=== PATIENT | male | born 1990 | race Caucasian/White ===

== ENCOUNTER 2020-12-05 17:33 | Inpatient (IN) | payer OTHER, BC ==
[~2020-12-05] VITALS: Ht 180.3 cm; Wt 64.2 kg
[~2020-12-05 17:33] MED LIST: CEPH500 PO; CODACE30 PO; DIPATR PO; HYDACE5325 PO; OXYACE5T PO; PROM25 PO; RXCODACET PO
[2020-12-05 17:52] LABS: BASOPHILS ABSOLUTE AUTO 0.05 K/mm3 (0.00-0.23); BASOPHILS PERCENT AUTO 1 % (0-2); EOSINOPHILS ABSOLUTE AUTO 0.12 K/mm3 (0.00-0.68); EOSINOPHILS PERCENT AUTO 1 % (0-6); Hematocrit 40.3 % (37.0-53.0); Hemoglobin 15.1 g/dL (13.5-17.5); IMMATURE GRAN ABSOLUTE AUTO 0.03 K/mm3 (0.00-0.10); IMMATURE GRAN PERCENT AUTO 0 % (0-1); LYMPHOCYTES ABSOLUTE AUTO 3.02 K/mm3 (0.84-5.20); LYMPHOCYTES PERCENT AUTO 36 % (21-46); MONOCYTES ABSOLUTE AUTO 0.93 K/mm3 (0.16-1.47); MONOCYTES PERCENT AUTO 11 % (4-13); Mean Corpuscular HGB 34.6 pg (26.0-34.0); Mean Corpuscular HGB Conc 37.5 g/dL (31.5-36.5); Mean Corpuscular Volume 92 fL (80-100); Mean Platelet Volume 10.7 fL (9.1-12.4); NEUTROPHILS ABSOLUTE AUTO 4.18 K/mm3 (1.96-9.15); NEUTROPHILS PERCENT AUTO 50 % (41-73); Platelet Count 189 K/mm3 (150-400); RDW Coefficient Variation 11.4 % (11.7-14.2); RDW Standard Deviation 38.5 fL (35.1-46.3); Red Blood Cell Count 4.36 M/mm3 (4.30-5.90); White Blood Cell Count 8.33 K/mm3 (4.00-11.30)
[2020-12-05 18:06] LABS: International Normalized Ratio 1.02
[2020-12-05 18:11] LABS: Alanine Aminotransfer (ALT/SGP 22 U/L (12-78); Albumin, Blood 4.2 g/dL (3.4-5.0); Albumin/Globulin Ratio 1.1 (0.8-1.8); Alk Phos 50 U/L (50-136); Anion Gap 12 mmol/L (6-16); Aspartate Aminotrans (AST/SGOT 19 U/L (12-37); Bilirubin, Total 0.7 mg/dL (0.1-1.0); Blood Urea Nitrogen 14 mg/dL (8-24); Bun/Creatinine Ratio 16.6 (12.0-20.0); CO2, Blood 21 mmol/L (21-32); Calcium, Blood 8.6 mg/dL (8.5-10.1); Chloride, Blood 109 mmol/L (98-108); Creatinine, Blood 0.84 mg/dL (0.60-1.20); Ethanol (Alcohol), Blood, Med 203 mg/dL; Globulin, Blood 3.7 g/dL (2.2-4.0); Glomerular Filtration Rate >60 (60-); Glucose, Blood 103 mg/dL (70-99); Potassium, Blood 3.7 mmol/L (3.5-5.5); Sodium, Blood 142 mmol/L (136-145); Total Protein, Blood 7.9 g/dL (6.4-8.2)
[2020-12-05 18:48] LABS: Source, Urine Clean Catch
[2020-12-05 18:51] LABS: Appearance, Urine Clear (Clear); Bilirubin, Urine Neg (Neg); Blood, Urine Neg (Neg); Color, Urine Yellow (P-Yellow); Glucose Qualitative, Urine Neg (Neg); Ketones, Urine Neg (Neg); Leukocyte Esterase, Urine Neg (Neg); Nitrite, Urine Neg (Neg); Protein, Urine Neg (Neg); Specific Gravity, Urine 1.005 (1.003-1.022); Urobilinogen, Urine NORM (Normal)
[2020-12-05 22:19] LABS: SARS-Cov-2 (COVID-19) PCR, MMC POSITIVE (NEGATIVE)
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
[2020-12-05 23:53] LABS: U Amphetamine Screen Not Detected; U Barbituate Screen Not Detected; U Benzodiazapine Screen Not Detected; U Buprenorphine Screen Not Detected; U Cannabinoids Screen DETECTED; U Cocaine Screen Not Detected; U Methadone Screen Not Detected; U Methamphetamine Screen Not Detected; U Opiates Screen DETECTED; U Oxycodone Screen Not Detected; U Phencyclidine Screen Not Detected; U Propoxyphene Screen Not Detected
[2020-12-06 04:51] LABS: BASOPHILS ABSOLUTE AUTO 0.02 K/mm3 (0.00-0.23); BASOPHILS PERCENT AUTO 0 % (0-2); EOSINOPHILS PERCENT AUTO 0 % (0-6); Hematocrit 39.9 % (37.0-53.0); Hemoglobin 14.7 g/dL (13.5-17.5); IMMATURE GRAN ABSOLUTE AUTO 0.04 K/mm3 (0.00-0.10); IMMATURE GRAN PERCENT AUTO 0 % (0-1); LYMPHOCYTES ABSOLUTE AUTO 1.05 K/mm3 (0.84-5.20); LYMPHOCYTES PERCENT AUTO 9 % (21-46); MONOCYTES ABSOLUTE AUTO 1.25 K/mm3 (0.16-1.47); MONOCYTES PERCENT AUTO 10 % (4-13); Mean Corpuscular HGB 34.3 pg (26.0-34.0); Mean Corpuscular HGB Conc 36.8 g/dL (31.5-36.5); Mean Corpuscular Volume 93 fL (80-100); Mean Platelet Volume 10.9 fL (9.1-12.4); NEUTROPHILS ABSOLUTE AUTO 9.97 K/mm3 (1.96-9.15); NEUTROPHILS PERCENT AUTO 81 % (41-73); Platelet Count 154 K/mm3 (150-400); RDW Coefficient Variation 11.7 % (11.7-14.2); RDW Standard Deviation 39.2 fL (35.1-46.3); Red Blood Cell Count 4.28 M/mm3 (4.30-5.90); White Blood Cell Count 12.33 K/mm3 (4.00-11.30)
[2020-12-06 05:08] LABS: Anion Gap 7 mmol/L (6-16); Blood Urea Nitrogen 13 mg/dL (8-24); Bun/Creatinine Ratio 15.8 (12.0-20.0); CO2, Blood 24 mmol/L (21-32); Calcium, Blood 8.4 mg/dL (8.5-10.1); Chloride, Blood 107 mmol/L (98-108); Creatinine, Blood 0.82 mg/dL (0.60-1.20); Glomerular Filtration Rate >60 (60-); Glucose, Blood 103 mg/dL (70-99); Potassium, Blood 3.9 mmol/L (3.5-5.5); Sodium, Blood 138 mmol/L (136-145)
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
--- NOTE | 2020-12-06 19:45 | NUR ---
PT BP ELEVATED POST OP. PT DENIES CP/PRESSURE. REP PAIN 11/12. PT REP N/T TO LEFT FINGERS, REP THROBBING PAIN IN LUE. SPLINT CDI, FINGERS WARM, CAP REFILL BRISK, PT MEDICATED FOR PAIN, WILL MONITOR BP AND TX PER ORDERS.
--- NOTE | 2020-12-07 06:38 | NUR ---
PT S/P ORIF TO LUE. POD 1. LUE IN SPLINT/SLING. GOOD CSM'S. ABLE TO WIGGLE FINGERS. NWB TO LUE. WAS HYPERTENSIVE AT BEG OF SHIFT D/T PX. PAIN MANAGED WELL WITH NORCO. TOLERATING CLEAR LIQUIDS. SALINE LOCKED.
[2020-12-07] MEDS ORDERED: Norco 5-325 Ta1 EACH PO (15:55)
[2020-12-07] MEDS ORDERED: AMOX-CLAV200 MG/51 PO (15:57)
--- NOTE | 2020-12-07 17:18 | NUR ---
SUMMARY DISCHARGE CANCELLED FOR TODAY DUE TO PAIN MANAGEMENT. PT REQUIRING IV DILAUDID FOR BREAKTHROUGH PAIN. NONWB TO BUE. MAY HAVE LIGHT ROM TO RUE, NO NEED FOR SLING. MAY USE SPOON, LIFT CUP. PT CHANGED TO FULL LIQUID DIET DUE TO DIFFICULTY CHEWING R/T JAW FX. TOLERATING FLUIDS. WORKED W/THERAPY AND SAT UP IN CHAIR THIS AM. CALL LIGHT IN REACH.
--- NOTE | 2020-12-07 18:21 | NUR ---
BP PT HYPERTENSIVE TODAY. SPOKE TO DR BERRY. ORDERS OBTAINED TO GIVE LABETOLOL FOR DIASTOLIC GREATER THAN 100. ORDERED TELE PER PROTOCOL. MEDICATED PER ORDERS FOR PAIN. CALL KASSANDRA IN REACH.
--- NOTE | 2020-12-07 19:05 | NUR ---
report given to oncoming shift.
--- NOTE | 2020-12-08 06:49 | NUR ---
SHIFT SUMMARY POD2 L RADIAL/ULNAR ORIF, R ELBOW/SCAPULA/JAW FX NON SURGICAL, PAIN MANAGED PER EMAR WITH LAST HALF OF SHIFT CONTROLLED BY ORAL PAIN MEDS, LABETALOL GIVEN FOR HIGH DIASTOLIC BP c GOOD SHORT TERM IMPROVEMENT AT SPOT CHECK. NO ACUTE EVETNS THIS SHIFT, CALL LIGHT IN REACH, WILL CTM AND REPORT TO DAY RN.
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
--- NOTE | 2020-12-12 14:20 | NUR ---
12/12/20 1420 Kailyn Aguilar VERIFICATIONS: EDIT CHART.
== END 2020-12-08 18:00 | disposition home or self-care (01) | DRG 510 ==
LOC: ER 17:33 → SURS 17:34
PROVIDERS: Orthopaedic Surgery; Student in an Organized Health Care Education/Training Program; ADMIT Surgery
PROC: 3E0234Z Introduction of Serum, Toxoid and Vaccine into Muscle, Percutaneous Approach (ICD-10-PCS; 2020-12-06)
PROC: 0PSL04Z Reposition Left Ulna with Internal Fixation Device, Open Approach (ICD-10-PCS; 2020-12-06)
PROC: 0HQ1XZZ Repair Face Skin, External Approach (ICD-10-PCS; 2020-12-06)
PROC: 0PSJ04Z Reposition Left Radius with Internal Fixation Device, Open Approach (ICD-10-PCS; principal; 2020-12-06 14:30)
DX: S52.392A Other fracture of shaft of radius, left arm, initial encounter for closed fracture (principal); U07.1 COVID-19; S02.69XA Fracture of mandible of other specified site, initial encounter for closed fracture; S52.612A Displaced fracture of left ulna styloid process, initial encounter for closed fracture; S01.81XA Laceration without foreign body of other part of head, initial encounter; S42.191A Fracture of other part of scapula, right shoulder, initial encounter for closed fracture; S52.202A Unspecified fracture of shaft of left ulna, initial encounter for closed fracture; Z23 Encounter for immunization; V29.9XXA Motorcycle rider (driver) (passenger) injured in unspecified traffic accident, initial encounter
CPT/HCPCS: 12013; 25605; 36415; 70450; 70486; 71045; 71260; 72125; 72170; 73070; 73080; 73090; 73110; 74177; 76000; 80048; 80053; 81003; 83690; 85025; 85610; 90471; 90714; 96365-59; 96375-59; 96376; 96376-59; 97116; 97161; 97530; 99152; 99285-25; A9270; C1713; G0378; G0480; J0690; J1100; J1170; J1650; J1885; J2060; J2250; J2270; J2405; J2704; J3010; J7120; Q9967; U0004